=== PATIENT | female | born 1980 | race Asian ===

== ENCOUNTER 2020-01-26 10:32 | Observation (INO) | payer MEDICAID, SELFPAY ==
[~2020-01-26] VITALS: Ht 160 cm; Wt 58.1 kg
[2020-01-26] MEDS ORDERED: DOCO200C2 PO (11:23)
[2020-01-26 12:27] VITALS: BP 99/63
== END 2020-01-26 13:42 | disposition home or self-care (01) ==
LOC: MFCC 10:32 → MLD 10:48
PROVIDERS: ADMIT Obstetrics & Gynecology; ATTEND Obstetrics & Gynecology
DX: O62.9 Abnormality of forces of labor, unspecified (principal); Z20.828 Contact with and (suspected) exposure to other viral communicable diseases; Z3A.38 38 weeks gestation of pregnancy
CPT/HCPCS: 59025; 76805; 81000; 87426; G0378; Q0092

== ENCOUNTER 2020-01-27 17:22 | Inpatient (IN) | payer MEDICAID ==
[~2020-01-27] VITALS: Ht 160 cm; Wt 58.1 kg
[~2020-01-27 17:22] MED LIST: DOCO200C2 PO
[2020-01-27] MEDS ORDERED: OXYTOCIN 10 UNITS/ML VIAL IM SCH (17:40)
[2020-01-27] MEDS ORDERED: METHYLERGONOVINE 0.2 MG/ML AMP IM PRN (17:40)
[2020-01-27] MEDS ORDERED: PROMETHAZINE 25 MG/ML VIAL IVP PRN (17:40)
[2020-01-27] MEDS ORDERED: MISOPROSTOL 25 MCG TAB VG SCH (17:40)
[2020-01-27] MEDS ORDERED: CARBOPROST 250 MCG/ML AMP IM PRN (17:40)
[2020-01-27 18:04] LABS: BASOPHILS # (AUTO) 0.1 K/uL (0.00-0.22); BASOPHILS % (AUTO) 0.5 % (0.0-2.0); EOSINOPHILS # (AUTO) 0.2 K/uL (0-0.4); EOSINOPHILS % (AUTO) 1.4 % (0.0-4.0); HEMATOCRIT 41.1 % (36-48); HEMOGLOBIN 13.9 g/dL (12.0-16.0); LYMPHOCYTES # (AUTO) 1.2 K/uL (2.5-16.5); LYMPHOCYTES % (AUTO) 11.5 % (20.5-51.1); MEAN CORPUSCULAR HEMOGLOBIN 31 pg (27-31); MEAN CORPUSCULAR HGB CONC 34 g/dL (33-37); MONOCYTES # (AUTO) 0.7 K/uL (0.8-1.0); NEUTROPHILS # (AUTO) 8.7 K/uL (1.8-7.7); NEUTROPHILS % (AUTO) 80.6 % (42.2-75.2); PLATELET COUNT (AUTO) 207 K/uL (140-450); RED BLOOD CELL COUNT(AUTO) 4.41 MIL/uL (4.20-5.40); RED CELL DISTRIBUTION WIDTH 13.3 % (11.6-13.7); WHITE BLOOD COUNT (AUTO) 10.8 K/uL (4.8-10.8)
[2020-01-27 18:19] LABS: ALBUMIN 2.9 g/dL (3.4-5.0); ANION GAP 15.5 (8-16); CARBON DIOXIDE 23.4 mmol/L (21-32); CREATININE 0.8 mg/dL (0.6-1.3); POTASSIUM 3.9 mmol/L (3.5-5.1); TOTAL BILIRUBIN 0.7 mg/dL (0.0-1.0)
[2020-01-27 19:48] LABS: APPEARANCE,URINE SL CLOUDY (CLEAR); BILIRUBIN,URINE NEGATIVE (NEGATIVE); BLOOD, URINE NEGATIVE (NEGATIVE); COLOR,URINE YELLOW (YELLOW); LEUKOCYTE ESTERASE ,URINE 3+ (NEGATIVE); NITRITE, URINE NEGATIVE (NEGATIVE); UGLUCOSE NEGATIVE (NEGATIVE)
[2020-01-27 20:01] LABS: RBC,URINE 0-5 /HPF (0-5)
[2020-01-27 20:02] LABS: URINE AMORPHOUS URATE 1+ /HPF (None Seen); WBC,URINE 16-25 (MOD) /HPF (0-5)
[2020-01-27] MEDS: LACTATED RINGERS 1,000 ML IV SCH (22:40)
[2020-01-28] MEDS ORDERED: ROPIVACAINE 0.2%/NS PREMIX 200 ML EPI ONE (02:07)
[2020-01-28] MEDS ORDERED: LIDOCAINE 2% 1000 MG/50 ML VIAL INJ SCH (04:50)
[2020-01-28] MEDS ORDERED: OXYTOCIN 10 UNITS/ML VIAL IM SCH (04:50)
[2020-01-28] MEDS ORDERED: OXYTOCIN 20 UNITS in LACTATED RINGERS 1,000 ML IV SCH ×2 (04:50→11:05)
[2020-01-28] MEDS ORDERED: OXYTOCIN 20 UNITS/LR PREMIX 1,000 ML IV ONE (04:57)
[2020-01-28] MEDS: LACTATED RINGERS 1,000 ML IV SCH (06:10)
[2020-01-28] MEDS ORDERED: LIDOCAINE 1% 500 MG/50 ML VIAL ONE (07:33)
--- NOTE | 2020-01-28 11:03 | NUR ---
PATIENT HAS BEEN SCREENED AND CATEGORIZED LOW NUTRITION RISK. PATIENT WILL BE SEEN WITHIN 7 DAYS OF ADMISSION. 02/03/20 ZUHAIR RODRIGUEZ MBA, RD
[2020-01-28] MEDS ORDERED: MEASLES, MUMPS, AND RUBELLA 1 VIAL SQVAC PRN (11:05)
[2020-01-28] MEDS ORDERED: ACETAMINOPHEN 325 MG TAB PO PRN (11:05)
[2020-01-28] MEDS ORDERED: bisacodyL 5 MG TABEC PO PRN (11:05)
[2020-01-28] MEDS ORDERED: BENZOCAINE/MENTHOL 20%-0.5% 60 GM CAN TP PRN (11:05)
[2020-01-28] MEDS ORDERED: DOCUSATE SODIUM 100 MG GELCAP PO PRN (11:05)
[2020-01-28] MEDS: IBUPROFEN 600 MG TAB PO PRN (20:54)
[2020-01-29 08:18] LABS: BASOPHILS # (AUTO) 0.1 K/uL (0.00-0.22); BASOPHILS % (AUTO) 0.9 % (0.0-2.0); EOSINOPHILS # (AUTO) 0.2 K/uL (0-0.4); HEMATOCRIT 37.9 % (36-48); HEMOGLOBIN 12.8 g/dL (12.0-16.0); LYMPHOCYTES # (AUTO) 1.8 K/uL (2.5-16.5); LYMPHOCYTES % (AUTO) 15.7 % (20.5-51.1); MEAN CORPUSCULAR HEMOGLOBIN 31 pg (27-31); MEAN CORPUSCULAR HGB CONC 34 g/dL (33-37); MEAN CORPUSCULAR VOLUME 92.3 fL (80-94); MONOCYTES # (AUTO) 0.9 K/uL (0.8-1.0); MONOCYTES % (AUTO) 7.6 % (1.7-9.3); NEUTROPHILS # (AUTO) 8.5 K/uL (1.8-7.7); NEUTROPHILS % (AUTO) 73.8 % (42.2-75.2); PLATELET COUNT (AUTO) 193 K/uL (140-450); RED BLOOD CELL COUNT(AUTO) 4.11 MIL/uL (4.20-5.40); RED CELL DISTRIBUTION WIDTH 13.5 % (11.6-13.7); WHITE BLOOD COUNT (AUTO) 11.4 K/uL (4.8-10.8)
[2020-01-29] MEDS: IBUPROFEN 600 MG TAB PO PRN (23:02)
[2020-01-30] MEDS ORDERED: FERR325E14 PO (10:17)
[2020-01-30] MEDS ORDERED: ACET-9800 PO (10:18)
== END 2020-01-30 15:10 | disposition home or self-care (01) | DRG 560 ==
LOC: MLD 17:22 → MFCC 01-28 14:21
PROVIDERS: ADMIT Obstetrics & Gynecology; ATTEND Obstetrics & Gynecology
PROC: 10E0XZZ Delivery of Products of Conception, External Approach (ICD-10-PCS; principal; 2020-01-28)
PROC: 3E0R3BZ Introduction of Anesthetic Agent into Spinal Canal, Percutaneous Approach (ICD-10-PCS; 2020-01-28)
PROC: 00HU33Z Insertion of Infusion Device into Spinal Canal, Percutaneous Approach (ICD-10-PCS; 2020-01-28)
PROC: 0HQ9XZZ Repair Perineum Skin, External Approach (ICD-10-PCS; 2020-01-28)
PROC: 3E0234Z Introduction of Serum, Toxoid and Vaccine into Muscle, Percutaneous Approach (ICD-10-PCS; 2020-01-28)
DX: O70.0 First degree perineal laceration during delivery (principal); O69.81X0 Labor and delivery complicated by cord around neck, without compression, not applicable or unspecified; Z3A.39 39 weeks gestation of pregnancy; Z37.0 Single live birth; Z23 Encounter for immunization
CPT/HCPCS: 36415; 51702; 80053; 81001; 85025; 86592; 86886; 86900; 86901; 87086; J2001; J2590; J2795; J7120